=== PATIENT | female | born 1945 ===

== ENCOUNTER 2017-11-17 09:04 | Outpatient (CLI) | payer OTHER | END 2017-11-17 17:00 | disposition home or self-care (01) | LOC: MAMO-SONO 09:04 | DX: Z12.31 Encounter for screening mammogram for malignant neoplasm of breast (principal); Z87.898 Personal history of other specified conditions; N64.89 Other specified disorders of breast ==

== ENCOUNTER 2018-11-23 08:34 | Outpatient (CLI) | payer OTHER | END 2018-11-23 08:45 | disposition home or self-care (01) | LOC: MAMO-SONO 08:34 | DX: Z12.31 Encounter for screening mammogram for malignant neoplasm of breast (principal); Z87.898 Personal history of other specified conditions ==

== ENCOUNTER 2018-12-17 09:21 | Outpatient (CLI) | payer OTHER | END 2018-12-17 09:28 | disposition home or self-care (01) | LOC: TOM 09:21 | DX: M51.36 Other intervertebral disc degeneration, lumbar region (principal) ==